=== PATIENT | female | born 1985 | race Caucasian/White ===

== ENCOUNTER → 2020-10-05 | Outpatient (CLI) | payer OTHER, SELFPAY ==
[2020-10-05 10:11] VITALS: BMI 25.3
[2020-10-12 03:06] LABS: HPV Genotype 16, Aptima Negative (Negative)
[2020-10-12 09:16] LABS: HPV APTIMA, High Risk Positive (Negative); HPV Genotype 18,45 Aptima Negative (Negative)
== END | disposition home or self-care (01) ==
LOC: LABSPEC 12:17
PROVIDERS: PCP Family Medicine; Referring Provider Nurse Practitioner Women's Health; Visit Provider Nurse Practitioner Women's Health
DX: Z12.4 Encounter for screening for malignant neoplasm of cervix (principal)
CPT/HCPCS: 87624; 88175; G0145

== ENCOUNTER 2021-11-10 07:55 | Outpatient (CLI) | payer OTHER, SELFPAY ==
[2021-11-10 08:42] LABS: Cholesterol 173 mg/dL (200); Glucose 92 mg/dL (74-106); High Density Lipoprotein 71 mg/dL; Thyroid Stim Hormone (TSH) 1.44 uIU/mL (0.358-3.74); Triglycerides 35 mg/dL; Very Low Density Lipoprotein 7 mg/dL (5-40); Vitamin D,25 Hydroxy 22.1 ng/mL
[2021-11-15 21:31] LABS: HPV APTIMA, High Risk Negative (Negative)
== END 2021-11-10 23:59 | disposition home or self-care (01) ==
PROVIDERS: PCP Family Medicine; Referring Provider Nurse Practitioner Women's Health; Visit Provider Nurse Practitioner Women's Health
DX: Z12.4 Encounter for screening for malignant neoplasm of cervix (principal); Z13.220 Encounter for screening for lipoid disorders; Z13.1 Encounter for screening for diabetes mellitus; Z13.29 Encounter for screening for other suspected endocrine disorder; Z13.21 Encounter for screening for nutritional disorder
CPT/HCPCS: 36415; 80061; 82306; 82947; 84443; 87624; 88175; G0145

== ENCOUNTER → 2022-11-14 | Outpatient (CLI) | payer OTHER, SELFPAY ==
[2022-11-14 09:15] LABS: Vitamin D,25 Hydroxy 63.2 ng/mL
[2022-11-14 09:17] LABS: Cholesterol 171 mg/dL (200); Glucose 81 mg/dL (74-106); High Density Lipoprotein 63 mg/dL; Thyroid Stim Hormone (TSH) 1.04 uIU/mL (0.358-3.74); Triglycerides 41 mg/dL; Very Low Density Lipoprotein 8 mg/dL (5-40)
[2022-11-21 16:34] LABS: HPV APTIMA, High Risk Negative (Negative)
== END | disposition home or self-care (01) ==
PROVIDERS: PCP Family Medicine; Referring Provider Nurse Practitioner Women's Health; Visit Provider Nurse Practitioner Women's Health
DX: Z13.1 Encounter for screening for diabetes mellitus (principal); Z13.220 Encounter for screening for lipoid disorders; Z13.29 Encounter for screening for other suspected endocrine disorder; Z13.21 Encounter for screening for nutritional disorder; Z12.4 Encounter for screening for malignant neoplasm of cervix
CPT/HCPCS: 36415; 80061; 82306; 82947; 84443; 87624; 88175; G0145

== ENCOUNTER → 2023-11-20 | Outpatient (CLI) | payer OTHER, SELFPAY ==
[2023-11-28 10:09] LABS: HPV APTIMA, High Risk Negative (Negative)
== END | disposition home or self-care (01) ==
PROVIDERS: PCP Family Medicine; Referring Provider Nurse Practitioner Women's Health; Visit Provider Nurse Practitioner Women's Health
DX: Z12.4 Encounter for screening for malignant neoplasm of cervix (principal)
CPT/HCPCS: 87624; 88175; G0145

== ENCOUNTER → 2023-11-26 | Outpatient (CLI) | payer OTHER, SELFPAY ==
--- NOTE | 2023-11-26 10:55 | US_ITS ---
STUDY: ULTRASOUND OF THE FEMALE PELVIS - COMPLETE REASON FOR EXAM: Female, 38 years old. AUB LMP: November 11, 2023. TECHNIQUE: Transabdominal and Transvaginal TECHNICAL QUALITY: Adequate. COMPARISON: None. FINDINGS: The uterus is anteverted and is in a midline position. The uterus measures 9.7 cm x 5.7 cm x 3.4 cm. Normal uterine cervix. The endometrium is thickened and measures 13.2 mm in thickness, and is heterogeneous (striated). There is no demonstrated endometrial mass. Findings suggestive of a 5 mm x 9 mm x 5 mm fibroid in the right side of the body of the uterus. I.U.D. - The patient does not have an I.U.D. The right ovary is visualized. The right ovary measures 3.4 cm x 3.1 cm x 1.8 cm. There is no right ovarian cyst or ovarian mass. There is no visualized right adnexal mass or complex lesion. There is normal arterial and normal venous vascularity. The left ovary is visualized. The left ovary measures 2.8 cm x 3 cm x 3.4 cm. A dominant follicle is seen measuring 1.2 cm x 0.9 cm x 1.7 cm. There is no visualized left adnexal mass or complex lesion. There is normal arterial and normal venous vascularity. There is no fluid in the cul-de-sac. The pre void volume of the bladder was 838.5 ml. US/Transvaginal Non- IMPRESSION: Endometrial thickening. 1.2 cm x 0.9 cm x 1.7 cm dominant follicle in the left ovary. Electronically Signed: Walt Mendieta MD at 12:37 EDT ,
== END | disposition home or self-care (01) ==
LOC: US 10:55
PROVIDERS: PCP Family Medicine; Referring Provider Nurse Practitioner Women's Health; Visit Provider Nurse Practitioner Women's Health
DX: N93.9 Abnormal uterine and vaginal bleeding, unspecified (principal)
CPT/HCPCS: 76830; 76856

== ENCOUNTER → 2023-12-18 | Outpatient (CLI) | payer OTHER, SELFPAY ==
[2023-12-18 08:51] LABS: Cholesterol 207 mg/dL (200); Glucose 93 mg/dL (74-106); High Density Lipoprotein 80 mg/dL; Thyroid Stim Hormone (TSH) 1.06 uIU/mL (0.358-3.74); Triglycerides 49 mg/dL; Very Low Density Lipoprotein 10 mg/dL (5-40)
[2023-12-18 09:21] LABS: Vitamin D,25 Hydroxy 86.3 ng/mL
== END | disposition home or self-care (01) ==
LOC: PAVLAB 08:09
PROVIDERS: PCP Family Medicine; Referring Provider Nurse Practitioner Women's Health; Visit Provider Nurse Practitioner Women's Health
DX: Z13.21 Encounter for screening for nutritional disorder (principal); Z13.29 Encounter for screening for other suspected endocrine disorder; Z13.220 Encounter for screening for lipoid disorders; Z13.1 Encounter for screening for diabetes mellitus
CPT/HCPCS: 36415; 80061; 82306; 82947; 84443

== ENCOUNTER → 2024-11-19 | Outpatient (CLI) | payer OTHER, SELFPAY ==
[2024-11-19 09:11] LABS: Cholesterol 205 mg/dL (<=200); Glucose 90 mg/dL (70-99); High Density Lipoprotein 84 mg/dL; Low Density Lipoprotein Calc. 112 mg/dL; Triglycerides 42 mg/dL; Very Low Density Lipoprotein 8 mg/dL (5-40); Vitamin D,25 Hydroxy 60.1 ng/mL (30-100); cholesterol:hdl ratio screen 2.43
== END | disposition home or self-care (01) ==
PROVIDERS: Referring Provider Obstetrics & Gynecology; Visit Provider Obstetrics & Gynecology
DX: Z13.1 Encounter for screening for diabetes mellitus (principal); Z13.29 Encounter for screening for other suspected endocrine disorder; Z13.220 Encounter for screening for lipoid disorders
CPT/HCPCS: 36415; 80061; 82306; 82947; 84443

== ENCOUNTER → 2025-01-28 | Outpatient (CLI) | payer OTHER, SELFPAY ==
--- NOTE | 2025-01-28 08:00 | BI_ITS ---
EXAM: SCRN MAMM (CAD)W/CLAUDE BILAT 01/28/2025 CLINICAL HISTORY: F, Age 40 y/o , SCREENING MAMMOGRAM TECHNIQUE: Bilateral screening digital breast tomosynthesis with 2D and 3D images. Computer aided detection. COMPARISON: Baseline examination, no priors. FINDINGS: TISSUE DENSITY: The breast tissue is extremely dense which lowers the sensitivity of mammography. The mammogram demonstrates that the patient has dense breasts. Supplemental screening with whole breast ultrasound or MRI may be considered for further evaluation. Bilateral Breast Mammographic Findings: No significant masses, calcifications or other abnormalities are identified. BI/SCRN MAMM (CAD)W/CLAUDE BILAT IMPRESSION: Right Breast: BIRADS 1 NEGATIVE. Left Breast: BIRADS 1 NEGATIVE. OVERALL FINAL ASSESSMENT: BIRADS 1 NEGATIVE. RECOMMENDATION: Routine annual follow-up in 1 Year A letter with findings and recommendations will be mailed to the patient. Reading Location: [id number]
--- OUTSIDE RECORDS SUMMARY | 2025-01-28 08:02 | XMS RPT_ITS | CCD ---
Author Organization [facility] Care Team Providers Care Title Checker Name Role Phone HERMES Martinez Primary Care Provider HERMES Martinez Referring Provider [phone] CELESTE Hicks NP Attending Provider Care Physician, No Primary Primary Care Provider Unavailable Dr. Regi Mott DO Attending Provider Dr. Regi Mott DO Referring Provider Care Physician, No Primary Primary Care Unava ilable Regi Mott Attending Nanda Huerta Referring Unavailable Care Physician, No Primary Primary Care Unava ilable Regi Mott Attending Regi Taveras Referring Jenny e Care Physician, No Primary Primary Care Unava ilable Regi Mott Attending Regi Taveras Referring Jenny e Medications Current Medications Medication Drug Class(es) Dates Sig (Normalized) Sig (Original) ascorbic acid 1000 mg oral capsule (4 sources) Vitamin C Start: 11-20-2023 take 1 g by mouth every six hours Ascorbic Acid (Vitamin C) 1,000 mg capsule Active 1 g PO EVERY 6 HOURS November 20, 2023 12:00am Start: 11-20-2023 take 1 g by mouth ev jasmeet six hours Ascorbic Acid (Vitamin C) Active 1 GM PO EVERY 6 HOURS November 20, 2023 12:00am B.Coagul,Brdxzgbt-Jemzvj-Tbz C (Culturelle Probiotic-Prebiotic) 1 billion cell- 1 gram-15 mg tablet,chewable (4 sources) Start: 11-20-2023 B.Coagul,Ggibfldr-Qsrkeq-Yhh C (Culturelle Probiotic-Prebiotic) 1 billion cell- 1 gram-15 mg tablet,chewable Active {tbl} PO November 20, 2023 12:00am Start: 11-20-2023 B.Coagul,Maryi rwr-Nhuxaj-Qkg C (Culturelle Probiotic- Prebiotic) 1 billion cell- 1 gram-15 mg tablet,chewable Active TABLET PO November 20, 2023 12:00am cholecalciferol 0.05 mg oral capsule (4 sources) Vitamin D Start: 11-20-2023 take 1 capsule by mouth once daily Cholecalciferol (Vitamin D3) 50 mcg (2,000 unit) capsule Active 50 ug PO DAILY November 20, 2023 12:00am Magnesium (4 sources) Start: 11-20-2023 take 1 tablet by mouth once daily Magnesium 250 mg tablet Active 250 mg PO DAILY November 20, 2023 12:00am Start: 11-20-2023 take 250 mg by mouth once adriana y Magnesium Active 250 MG PO DAILY November 20, 2023 12:00am Multivit Glk-Jakt-Qv-Herb 186 (Hair, Skin And Nails Advanced) 3.3 mg iron-25 mcg tablet (4 sources) Start: 11-20-2023 take 3.3 tablets by mouth once Multivit Nlt-Lbzl-Pa-Herb 186 (Hair, Skin And Nails Advanced) 3.3 mg iron-25 mcg tablet Active {tbl} PO November 20, 2023 12:00am Start: 11-20-2023 Multivit Min-I surendra-Fa-Herb 186 (Hair, Skin And Nails Advanced) 3.3 mg iron-25 mcg tablet Active TABLET PO November 20, 2023 12:00am Multivitamin preparation (3 sources) Start: 11-20-2023 take 1 tablet by mouth once daily Multivitamin Active 1 TABLET PO DAILY November 20, 2023 12:00am Multivitamin tablet (1 source) Start: 11-20-2023 Multivitamin t ablet Active 1 {tbl} PO DAILY November 20, 2023 12:00am Dakota-3 Fatty Acids (3 sources) Start: 11-20-2023 take 1000 mg by mouth once daily Dakota-3 Fatty Acids Active 1000 MG PO DAILY November 20, 2023 12:00am Dakota-3 Fatty Acids 1,000 mg capsule (1 source) Start: 11-20-2023 take 1 capsule by mouth once daily Dakota-3 Fatty Acids 1,000 mg capsule Active 1000 mg PO DAILY November 20, 2023 12:00am Completed/Discontinued Medications Medication Drug Class(es) Dates Sig (Normalized) Sig (Original) saccharomyces boulardii 250 mg oral capsule (4 sources) Start: 11-20-2023 End: 11-20-2023 take 1 capsule by mouth twice daily Saccharomyces Boulardii (Daily Probiotic (S. Boulardii)) 250 mg capsule Discontinued 250 mg PO TWICE A DAY November 20, 2023 12:00am November 20, 2023 9:06am Problems Problem Classification Problem Date Documented Date Episodic/Chronic Nutritional deficiencies (6 sources) Vitamin D deficiency; Translations: [Vitamin D deficiency, unspecified] 11-10-2021 Chronic Other female genital disorders (4 sources) Abnormal uterine bleeding; Translations: [Abnormal uterine and vaginal bleeding, unspecified] 11-20-2023 Chronic Other female genital disorders (3 sources) Abnormal uterine and vaginal bleeding, unspecified; Translations: [Unspecified disorders of menstruation and other abnormal bleeding from female genital tract] 11-20-2023 Chronic Other screening for suspected conditions (not mental disorders or infectious disease) (3 sources) Encounter for screening mammogram for malignant neoplasm of breast; Translations: [Encounter for screening for diabetes mellitus] Onset: 11-20-2024 Episodic Residual codes; unclassified (9 sources) Positive measurement finding; Translations: [Positive test for human papillomavirus (HPV)] 11-14-2022 Episodic Comment on above: neg pap; repeat pap 09/2021:neg pap and [id number]. 2023: Results Test Name Value Interpretation Reference Range Facility Paper Finisher Office Visit Reporton 11-21-2024 Paper Finisher Office Visit Report [facility] [address], [address] [place] [address] OFFICE VISIT Date of Service: 11/21/24 MR#: [id number] Acct: [id number] Name: OSCAR MATSON Rep #: [id number] : 1985 Provider: Dr. Regi Putnam DO Age/Sex: 39/F Location: [facility] Status: Signed Intake Vital Signs 11/20/23 09:06 11/21/24 13:26 Height 5 ft 3 in 5 ft 3 in Weight: 138 lb 6 oz BMI 24.5 BP 106/62 Intake Visit Reasons: Annual ([employer]) Manager Environmental Services Required: No Is patient in pain?: No Allergies No Known Allergies Allergy (Unverified 11/21/24 13:27) Medications ???Medication ???Instructions ???Recorded ???Confirmed ???Type B.coagulan,subtilis 1 bill. tab PO 11/20/23 11/21/24 History cell-inulin 1 gram-vit C 15 mg chew tablet (Culturelle Probiotic-Prebiotic) cholecalciferol (vitamin D3) 50 50 mcg PO DAILY 11/20/23 11/21/24 History mcg (2,000 unit) capsule magnesium 250 mg tablet 250 mg PO DAILY 11/20/23 11/21/24 History multivitamin 1 tab PO DAILY 11/20/23 11/21/24 H istory multivitamin,min-ferr ous fumarate tab PO 11/20/23 11/21/24 History 3.3 mg-folic 25 mcg-herb tablet (Hair, Skin and Nails Advanced) omega-3 fatty acids 1,000 mg 1,000 mg PO DAILY 11/20/23 5 History capsule Is last menstrual period known: Yes Last Menstrual Period: 11/12/24 Post menopausal: No Patient : No : No PFSH Medical History H/O blood clots Surgical History H/O oral surgery H/O lateral meniscus repair of left knee Family History Grandmother Lymphoma Father Skin cancer Mother irregular cervical cells Aunt Liver cancer Social History household members: spouse and children number of children: 1 current occupational status: employed current occupation: the [employer] history of recent travel: No sexually active: Yes Smoking Status: Never smoker alcohol intake: current alcohol intake frequency: a few times a month substance use type: does not use what type of physical activity do you participate in: walking and weight training frequency: daily seatbelt use: always do you feel safe at home: Yes additional social history: - Lai History 1 Elective abortions Hx Para 1 Spontaneous abortions Hx # Term Pregnancies Ectopic pregnancies Hx # Pregnancies Multiple births # of living children 1 Past Pregnancies Del. Date Name GA/Weeks Outcome Route Bth Weight Gen Labor Lgth Anesthesia Del Leonard Provider FOB 03/06/12 Alan HERNANDEZ HPI Encounter for routine gynecological examination Details: OSCAR BARCLAY is a 39 year old who presents for annual exam continues to have breakthrough bleeding especially after exercise. Last PAP: 2023 History of abnormal PAP: no Last mammogram: 2023 History of abnormal mammogram: no Colon cancer screening: n/a Other preventative health care screenings: followed by pcp Female Reproductive History Last Menstrual Period: 11/12/24 Cycle Length: 21-35 Bleeding Duration: 5 Questions: metorrhagia: No, sexually active: Yes, dyspareunia: No and PCB: No Menopausal Symptoms: No hot flashes, No night sweats, No weight change, No mood changes, No difficulty concentrating, No sleep problems and No change in libido ROS Const Constitutional: Reports as per HPI; Denies fatigue, increased appetite, poor appetite, night sweats, weight gain or weight loss Cardio Card: Denies chest pain Resp Resp: Denies cough or dyspnea GI GI: Reports as per HPI; Denies abdominal pain, bloating, constipation, nausea or vomiting : Reports as per HPI and other; Denies difficulty voiding, dysuria, hematuria, hot flashes, nipple discharge, pelvic pain, prolapse symptoms, urinary frequency, urinary incontinence, urinary urgency, vaginal discharge, vaginal dryness, vaginal odor or vaginal pruritus Skin Skin/Breast: Denies changing lesions, breast mass, breast pain, breast skin changes or nipple discharge Psych Psych: Denies anxiety, change in libido, depression or difficulty concentrating Exam Const General: cooperative, healthy appearing, comfortable, no acute distress, well developed and well groomed [facility] Head: normal to inspection and normocephalic Ears: hearing grossly normal bilaterally and external ears normal Nose: external nose normal Face and sinus: normal facial exam Neck Neck: normal visual inspection, full ROM and no lymphadenopathy Thyroid: thyroid normal Chest Chest palpation inspection: normal inspection of the chest Breast in (more content not included)... Normal [facility] Calculated very low density lipoprotein (VLDL) cholesterol measurementOrdered By: Regi Dominguez on 11-19-2024 VLDL Cholesterol 8 mg/dL 5-40 [facility] Glucoseon 11-19-2024 Glucose [Mass/Vol] 90 mg/dL Normal 70-99 [facility] Comment on above: Performed By: #### L [id number], L500.4100, L501.0100, L506.1001 #### [facility] [address] [place], [address] L506.1001on 11-19-2024 Vitamin D 25-OH 60.1 ng/mL Normal 30-100 [facility] Comment on above: Result Comment: Hilda min D Status Deficiency: <20 ng/mL (50nmol/L) Insufficiency: 20-30 ng/mL (50-75 nmol/L) Sufficiency: 30-100 ng/mL (75-250 nmol/L) Toxicity: >100 ng/mL (>250 nmol/L) Performed By: #### L [id number], L500.4100, L501.0100, L506.1001 #### [facility] [address] [place], [address] LDL calc ser/plasOrdered By: Regi Dominguez on 11-19-2024 LDL Cholesterol, Calculated 112 mg/dL [facility] Comment on above: Uaasflmcxy=750-724 m g/dL & Higher Bfsk=132 mg/dL or greater Lipid Profileon 11-19-2024 CHOL:HDL 2.43 Normal [facility] Comment on above: Performed By: #### L [id number], L500.4100, L501.0100, L506.1001 #### [facility] [address] [place], [address] Cholesterol [Mass/Vol] 205 mg/dL High <=200 [facility] Comment on above: Result Comment: Chol esterol level, Desirable <200 mg/dL Borderline high cholesterol 200-239 mg/dL High cholesterol >=240 mg/dL Recommendations of the NCEP Adult Treatment Panel for the following risk-cutoff thresholds for the [place] population. Performed By: #### L [id number], L500.4100, L501.0100, L506.1001 #### [facility] [address] [place], [address] Cholesterol in HDL [Mass/Vol] 84 mg/dL Normal [facility] Comment on above: Result Comment: Emely onal Cholesterol Education Program (NCEP) guidelines: <40 mg/dL: Low HDL-cholesterol (major risk factor for CHD) >= 60 mg/dL: High HDL-cholesterol (negative risk factor for CHD) HDL-cholesterol is affected by a number of factors, e.g. smoking, exercise, hormones, sex and age. Performed By: #### L [id number], L500.4100, L501.0100, L506.1001 #### [facility] [address] [place], [address] Cholesterol in LDL [Mass/Vol] 112 mg/dL Normal [facility] Comment on above: Result Comment: Bord pxxuax=412-095 mg/dL Higher Fper=288 mg/dL or greater Performed By: #### L 501.9520, L500.4100, L501.0100, L506.1001 #### [facility] [address] [place], [address] Cholesterol in VLDL [Mass/Vol] 8 mg/dL Normal 5-40 [facility] Comment on above: Performed By: #### L [id number], L500.4100, L501.0100, L506.1001 #### [facility] [address] [place], [address] Triglyceride [Mass/Vol] 42 mg/dL Normal [facility] Comment on above: Result Comment: The drugs N-Acetylcysteine and Metamizole may falsely depress this assay. Normal range: <150 mg/dL Borderline High: 150-199 mg/dL High: 200-499 mg/dL Very High: >500 mg/dL Performed By: #### L [id number], L500.4100, L501.0100, L506.1001 #### [facility] [address] [place], [address] Screening total cholesterol/ high density lipoprotein (HDL) cholesterol ratioOrdered By: Regi Dominguez on 11-19-2024 Cholesterol.total/Nicol sterol in HDL [Mass ratio] 2.43 {ratio} [facility] Serum glucose measurement (m ass/volume)Ordered By: Regi Dominguez on 11-19-2024 Glucose [Mass/Vol] 90 mg/dL 70-99 [facility] Serum or plasma cholesterol in HDL measurement (mass/volume)Ordered By: Regi Dominguez on 11-19-2024 Cholesterol in HDL [Mass/Vol] 84 mg/dL >40 [facility] Comment on above: National Cholesterol Education Program (NCEP) guidelines:<40 mg/dL: Low HDL-cholesterol (major risk factor for CHD)>= 60 mg/dL: High HDL-cholesterol (negative risk factor for CHD)HDL-cholesterol is affected by a number of factors, e.g. smoking, exercise, hormones, sex and age. Serum or plasma cholesterol measurement (mass/volume)Ordered By: Regi Dominguez on 11-19-2024 Cholesterol [Mass/Vol] 205 mg/dL High <201 [facility] Comment on above: Cholesterol level, D esirable <200 mg/dLBorderline high cholesterol 200-239 mg/dLHigh cholesterol >=240 mg/dLRecommendations of the NCEP Adult Treatment Panel for the following risk-cutoff thresholds for the [place] population. TSH DL <= 0.005 mIU/L QnOrde red By: Regi Dominguez on 11-19-2024 Thyroid Stimulating Hormone (TSH) 1.370 uIU/mL 0.300-4.200 [facility] Thyroid Stim Hormone (TSH)on 11-19-2024 TSH 1.370 uIU/mL Normal 0.300-4.200 [facility] Comment on above: Performed By: #### L [id number], L500.4100, L501.0100, L506.1001 #### [facility] [address] [place], [address] Triglycerides measurementOrd ered By: Regi Dominguez on 11-19-2024 Triglyceride [Mass/Vol] 42 mg/dL <199 [facility] Comment on above: The drugs N-Acetylcy steine and Metamizole may falsely depress this assay. Normal range: <150 mg/dLBorderline High: 150-199 mg/dLHigh: 200-499 mg/dLVery High: >500 mg/dL Vitamin D, 25-hydroxyOrdered By: Regi Dominguez on 11-19-2024 Vitamin D 25-Hydroxy 60.1 ng/mL 30-100 [facility] Comment on above: Vitamin D StatusDefi ciency: <20 ng/mL (50nmol/L)Insufficiency: 20-30 ng/mL (50-75 nmol/L)Sufficiency: 30-100 ng/mL (75-250 nmol/L)Toxicity: >100 ng/mL (>250 nmol/L) Basophil percentageOrdered B y: Rachell Hicks on 12-18-2023 Cholesterol [Mass/Vol] 207 mg/dL <200 [facility] Comment on above: <200 mg/dL Desirable 200-240 mg/dL Borderline >240 mg/dL High Risk Glucose [Mass/Vol] 93 mg/dL 74-106 [facility] Triglyceride [Mass/Vol] 49 mg/dL <199 [facility] Comment on above: The drugs N-Acetylcy steine and Metamizole may falsely depress this assay.Serum Triglycerides Reference Interval Normal <150 mg/dL Borderline high 150 - 199 mg/dL High 200 - 499 mg/dL Very High > or = 500 mg/dL Laboratory - Chemistry and C hemistry - challengeOrdered By: Rachell Hicks on 12-18-2023 Cholesterol in HDL [Mass/Vol] 80 mg/dL >40 [facility] Comment on above: The drugs N-Acetylcy steine and Metamizole may falsely depress this assay. Reference Range HDL <40 mg/dL Low HDL Cholesterol HDL >or= 60 mg/dL High HDL Cholesterol Cholesterol in LDL [Mass/Vol] 117 mg/dL 0-130 [facility] No Panel InformationOrdered By: Rachell Hicks on 12-18-2023 Vitamin D 25-Hydroxy 86.3 ng/mL [facility] Comment on above: Vitamin D 25(OH) Sta tus Range Deficiency <20 ng/mL (50nmol/L) Insufficiency 20 - 30 ng/mL (50 - 75 nmol/L) Sufficiency 30 - 100 ng/mL (75 - 250 nmol/L) Toxicity >100 ng/mL (>250 nmol/L) VLDL Cholesterol 10 mg/dL 5-40 [facility] Serum or plasma thyroid stim ulating hormone (TSH) measurement (units/volume)Ordered By: Rachell Hicks on 12-18-2023 TSH Qn 1.06 uIU/mL 0.358-3.74 [facility] Cervical or vaginal specimen microscopic examination by liquid based cytology (reportOrdered By: Rachell Hicks on 11-20-2023 Cytology report Cyto stain.thin prep Doc (Cvx/Vag) Comment . [facility] Comment on above: Criteria not met, HP V Genotype not performed.Performed at: - [address] [id number] Director: Jennifer Bradley MD, Phone: [phone] at: =[facility] [id number] Director: Jennifer Bradley MD, Phone: [phone] Cervical or vagninal specime n microscopic examination by cytology stain (reported asOrdered By: Rachell Hicks on 11-20-2023 Cytology report Cyto stain Doc (Cvx/Vag) Comment . [facility] Comment on above: The Pap smear is a s creening test designed to aid in thedetection of premalignant and malignant conditions of theuterine cervix. It is not a diagnostic procedure andshould not be used as the sole means of detecting cervicalcancer. Both false-positive and false-negative reports dooccur. Detection in cervical specim en of any of human papilloma virus (HPV) 16, 18, 31, 33,Ordered By: Rachell Hicks on 11-20-2023 HPV 16+18+31+33+35+39+45+51 +52+56+58+59+66+68 DNA Probe+sig amp Ql (Cvx) Negative Negative [facility] Comment on above: This nucleic acid am plification test detects fourteen high-risk HPV types (16,18,31,33,35,39,45,51,52,56,58,59,66,68)without differentiation. Laboratory - CytologyOrdered By: Rachell Hicks on 11-20-2023 Inspector [employer] Cyto stain Nom (Cvx/Vag) [ID] Comment . [facility] Comment on above: Hannah Cortez, Cyto technologist (ASCP) Pathologist Cyto stain Nom (Cvx/Vag) [ID] Comment . [facility] Comment on above: Aylin Dela Cruz MD, Pa thologist Laboratory - Miscellaneous t estsOrdered By: Rachell Hicks on 11-20-2023 Service comment (Unsp spec) [Interp] . . [facility] Thin prep Papanicolaou smear with manual screeningOrdered By: Rachellsilviano Hicks on 11-20-2023 Thin prep Papanicolaou smear with manual screening Comment . [facility] Comment on above: NEGATIVE FOR INTRAEP ITHELIAL LESION OR MALIGNANCY.REACTIVE CELLULAR CHANGES AND/OR REPAIR ARE PRESENT. This liquid based Th inPrep(R) pap test was screened withthe use of an image guided system. Basophil percentageOrdered B y: Rachell Hicks on 11-14-2022 Cholesterol [Mass/Vol] 171 mg/dL <200 [facility] Comment on above: <200 mg/dL Desirable 200-240 mg/dL Borderline >240 mg/dL High Risk Glucose [Mass/Vol] 81 mg/dL 74-106 [facility] Triglyceride [Mass/Vol] 41 mg/dL <199 [facility] Comment on above: The drugs N-Acetylcy steine and Metamizole may falsely depress this assay.Serum Triglycerides Reference Interval Normal <150 mg/dL Borderline high 150 - 199 mg/dL High 200 - 499 mg/dL Very High > or = 500 mg/dL No Panel InformationOrdered By: Rachell Hicks on 11-14-2022 Thyroid Stimulating Hormone (TSH) 1.04 uIU/mL 0.358-3.74 [facility] Vitamin D 25-Hydroxy 63.2 ng/mL [facility] Comment on above: Vitamin D 25(OH) Sta tus Range Deficiency <20 ng/mL (50nmol/L) Insufficiency 20 - 30 ng/mL (50 - 75 nmol/L) Sufficiency 30 - 100 ng/mL (75 - 250 nmol/L) Toxicity >100 ng/mL (>250 nmol/L) Serum or plasma cholesterol in HDL measurement (mass/volume)Ordered By: Rachell Hicks on 11-14-2022 Cholesterol in HDL [Mass/Vol] 63 mg/dL >40 [facility] Comment on above: The drugs N-Acetylcy steine and Metamizole may falsely depress this assay. Reference Range HDL <40 mg/dL Low HDL Cholesterol HDL >or= 60 mg/dL High HDL Cholesterol Serum or plasma cholesterol in VLDL measurement (mass/volume)Ordered By: Rachell Hicks on 11-14-2022 Cholesterol in VLDL [Mass/Vol] 8 mg/dL 5-40 [facility] Serum or plasma low density lipoprotein (LDL) cholesterol measurement (mass/volume)Ordered By: Rachell Hicks on 11-14-2022 Cholesterol in LDL [Mass/Vol] 100 mg/dL 0-130 [facility] CNOVon 02-04-2019 CNOV Office Visit (WOOB) OSCAR MATSON ([id number]) 1985 F Date Time Provider Department 02/04/19 8:30 AM MONICA WINTERS (NGA) WOOB During your visit today, we recorded the following information about you: Blood pressure Weight Height Last Period 122/66 83.6 kg 1.6 m 01/26/19 Monica Winters APRN.CNP 02/04/2019 9:02 AM Signed Oscar Barclay is a 34 year old who presents for her annual gynecologic exam without complaints. Menses: cycles every 25-30 days and 4-5 days of flow. Contraception: none HPV vaccine: N/A Last Pap: 2016 normal HPV: negative History of abnormal pap: No Last mammogram: never Sexually active: Yes Pain with intercourse: No Postcoital bleeding: No OB History T1 L1 SAB0 TAB0 Ectopic0 Multiple0 Live Births0 PAST MEDICAL HISTORY Diagnosis Date - Embolism and thrombosis of unspecified site OF THE LEFT KNEE (BLOOD CLOT) PAST SURGICAL HISTORY Procedure Laterality Date - BIOPSY SYNOVIUM KNEE JOINT Semilunar cartilage, knee - PAST SURGICAL HISTORY OF wisdom teeth extraction FAMILY HISTORY Problem Relation Age of Onset - None Mother - None Father SOCIAL HISTORY Social History Tobacco Use - Smoking status: Never Smoker - Smokeless tobacco: Never Used Substance Use Topics - Alcohol use: No - Drug use: No REVIEW OF SYSTEMS Abdomen: No abdominal pain, nausea, vomiting, diarrhea, or constipation. No bloating, early satiety, indigestion, or increased flatulence. Bladder: No dysuria, gross hematuria, urinary frequency, urinary urgency, or incontinence. Breast: No breast lumps, nipple d/c, overlying skin changes, redness or skin retraction. Allergies and current medication updated:Yes EXAM: Ht 5' 3 (1.60m) Wt 184 lb 6.4 oz (83.6kg) LMP 01/26/2019 BMI 32.67 kg/(m2). GENERAL: pleasant, female in no apparent distress HEENT: Normocephalic, atraumatic, mucus membranes moist and no lesions NECK: Supple, full range of motion, no adenopathy and thyroid normal DERMATOLOGY: Normal, without lesions, non-icteric and non-hirsute BREAST: soft, non-tender, symmetric, no dominant mass, normal nipple-areolar complex, no lymphadenopathy and no nipple discharge CHEST: Normal inspiratory effort ABDOMEN: soft, non-tender and no masses PELVIC: external genitalia normal, normal Bartholin's glands, urethra, [place]'s glands, no vulvar lesions, no cervical lesions, good vaginal support, physiologic discharge present, normal appearing perineal body and perianal region, well estrogenized BIMANUAL: uterus normal size, shape and consistency, no adnexal masses, non-tender and no cervical motion tenderness RECTOVAGINAL: deferred. NEURO: alert and oriented x3,exam grossly non-focal EXTREMITIES: normal ASSESSMENT/PLAN: 1) Health maintenance: Pap/HPV up to date. Mammogram starting age 40. Nutrition, exercise and routine health maintenance exams reviewed. Calcium/Vitamin D supplementation information provided. 2) Contraception: none. Contraceptive options reviewed and information provided. 3) STD screening: Declined STD check. 4) Follow up one year or sooner as needed Monica Winters APRN.NGA Referring Provider: SELF [200] Allergies As of Date: 02/04/2019 (No Known Allergies) Date Reviewed: 02/04/2019 Reviewed by: Monica Winters - Fully Assessed Reason for Visit: Yearly Exam [187] Primary Visit Diagnosis:Encounter for gynecological examination (general) (routine) without abnormal findings [Z01.419] Problem List As Of Date 02/04/2019 Noted Resolved DVT of leg (deep venous thrombosis) [I82.409] INVALID FOR* Disposition: Return in 1 year (on 02/05/2020) for Annual Exam. Follow-up and Disposition History Recorded Encounter Status:Closed by MONICA WINTERS on 02/04/19 Normal [facility] PROGRESSon 02-04-2019 Protein mass conc HNO ID: [id number] Author: Monica Winters Service: ? Author Type: Nurse Practitioner Type: Progress Notes Filed: 02/04/2019 9:02 AM Note Text: Oscar Barclay is a 34 year old who presents for her annual gynecologic exam without complaints. Menses: cycles every 25-30 days and 4-5 days of flow. Contraception: none HPV vaccine: N/A Last Pap: 2015 normal HPV: negative History of abnormal pap: No Last mammogram: never Sexually active: Yes Pain with intercourse: No Postcoital bleeding: No OB History T1 L1 SAB0 TAB0 Ectopic0 Multiple0 Live Births0 PAST MEDICAL HISTORY Diagnosis Date - Embolism and thrombosis of unspecified site OF THE LEFT KNEE (BLOOD CLOT) PAST SURGICAL HISTORY Procedure Laterality Date - BIOPSY SYNOVIUM KNEE JOINT Semilunar cartilage, knee - PAST SURGICAL HISTORY OF wisdom teeth extraction FAMILY HISTORY Problem Relation Age of Onset - None Mother - None Father SOCIAL HISTORY Social History Tobacco Use - Smoking status: Never Smoker - Smokeless tobacco: Never Used Substance Use Topics - Alcohol use: No - Drug use: No REVIEW OF SYSTEMS Abdomen: No abdominal pain, nausea, vomiting, diarrhea, or constipation. No bloating, early satiety, indigestion, or increased flatulence. Bladder: No dysuria, gross hematuria, urinary frequency, urinary urgency, or incontinence. Breast: No breast lumps, nipple d/c, overlying skin changes, redness or skin retraction. Allergies and current medication updated:Yes EXAM: Ht 5' 3 (1.60m) Wt 184 lb 6.4 oz (83.6kg) LMP 01/26/2019 BMI 32.67 kg/(m2). GENERAL: pleasant, female in no apparent distress HEENT: Normocephalic, atraumatic, mucus membranes moist and no lesions NECK: Supple, full range of motion, no adenopathy and thyroid normal DERMATOLOGY: Normal, without lesions, non-icteric and non-hirsute BREAST: soft, non-tender, symmetric, no dominant mass, normal nipple-areolar complex, no lymphadenopathy and no nipple discharge CHEST: Normal inspiratory effort ABDOMEN: soft, non-tender and no masses PELVIC: external genitalia normal, normal Bartholin's glands, urethra, [place]'s glands, no vulvar lesions, no cervical lesions, good vaginal support, physiologic discharge present, normal appearing perineal body and perianal region, well estrogenized BIMANUAL: uterus normal size, shape and consistency, no adnexal masses, non-tender and no cervical motion tenderness RECTOVAGINAL: deferred. NEURO: alert and oriented x3,exam grossly non-focal EXTREMITIES: normal ASSESSMENT/PLAN: 1) Health maintenance: Pap/HPV up to date. Mammogram starting age 40. Nutrition, exercise and routine health maintenance exams reviewed. Calcium/Vitamin D supplementation information provided. 2) Contraception: none. Contraceptive options reviewed and information provided. 3) STD screening: Declined STD check. 4) Follow up one year or sooner as needed Monica Winters APRN.CARBONATION TESTER Normal [facility] Vital Signs Date Time Vital Sign Value Performing Clinician Faci lity 11-20-2023 09:06-0400 Body height 160.02 cm PA-C [employer] Work Phone: [facility] 11-20-2023 08:51-0400 Body mass index (BMI) [Ratio] 24.1 kg/m2 PA-C [employer] Work Phone: [facility] 11-20-2023 08:51-0400 Body weight 61.91 kg PA-C [employer] Work Phone: [facility] 11-20-2023 08:51-0400 Diastolic blood pressure 72 mm[Hg] PA-C Nanda [employer] PA Work Phone: [facility] 11-20-2023 08:51-0400 Systolic blood pressure 114 mm[Hg] PA-C [employer] PA Work Phone: [facility] 11-14-2022 08:28-0400 Body height 160.02 cm PA-C [employer] PA Work Phone: [facility] 11-14-2022 08:18-0400 Body mass index (BMI) [Ratio] 25.6 kg/m2 PA-C Nanda [employer] PA Work Phone: [facility] 11-14-2022 08:18-0400 Body weight 65.54 kg PA-C [employer] PA Work Phone: [facility] 11-14-2022 08:18-0400 Diastolic blood pressure 64 mm[Hg] PA-C [employer] PA Work Phone: [facility] 11-14-2022 08:18-0400 Systolic blood pressure 100 mm[Hg] PA-C [employer] PA Work Phone: [facility] Encounters Encounter Date Encounter Type Care Provider Facility Start: 01-28-2025 ambulatory No Primary Car e Physician Facility:[facility] Start: 11-21-2024 End: 11-21-2024 ambulatory No Primary Care Physician Facility:[facility] Start: 11-19-2024 End: 11-19-2024 ambulatory No Primary Care Physician [facility] Work Phone: Start: 11-19-2024 End: 11-19-[address] Regi Mott DO -Laboratory Work Phone: Start: 11-19-2024 End: 11-19-2024 ambulatory No Primary Care Physician Facility:[facility] Start: 12-18-2023 End: 12-18-2023 ambulatory PA-C Nanda [place] PA Work Phone: [facility] Work Phone: Start: 12-18-2023 End: 12-18-2023 Patient encounter procedure PA-C Nanda [place] PA Work Phone: [facility]-Laboratory, [facility] Start: 11-26-2023 End: 11-26-2023 ambulatory PA-C Nanda [place] PA Work Phone: [facility] Work Phone: Start: 11-26-2023 End: 11-26-2023 Patient encounter procedure PA-C Nanda [place] PA Work Phone: [facility]-Ultrasound, [facility] Work Phone: Start: 11-20-2023 End: 11-20-2023 ambulatory PA-C Nanda [place] PA Work Phone: [facility] Work Phone: Start: 11-20-2023 End: 11-20-2023 Patient encounter procedure PA-C Nanda [place] PA Work Phone: [facility]-Ultrasound, [facility] Work Phone: Start: 11-20-2023 End: 11-20-2023 Patient encounter procedure PA-C Nanda Handley PA Work Phone: [facility] Work Phone: Start: 11-14-2022 End: 11-14-2022 ambulatory PA-C Nanda [place] PA Work Phone: [facility] Work Phone: Start: 11-14-2022 End: 11-14-2022 Patient encounter procedure PA-C Nanda [place] PA Work Phone: [facility] Procedures Date Procedure Procedure Detail Performing Clinician Start: 11-26-2023 Pelvic echography PA-C Nanda [place] PA Work Phone: Start: 11-26-2023 Transvaginal echography HERMES FRAUSTO Work Phone: Plan of Treatment Date Care Activity Detail Author Start: 11-20-2023 Liquid based cervica l cytology screening [facility] Start: 11-14-2022 Liquid based cervica l cytology screening [facility] Path report.final Dx Spec [facility] Path report.final Dx Spec [facility] Payers Date Payer Category Payer Self-pay [id number] 2024 Unknown [id number] Unknown [id number] Unknown [id number] Unknown [id number] Social History Date Type Detail Facility Start: 11-14-2022 End: 11-20-2023 Tobacco smoking status NHIS Unknown if ever smoked [facility] Start: 1985 Sex Assigned At Female [facility] Start: 11-20-2023 Tobacco smoking stat us ORIS Never smoked tobacco (finding) [facility] Start: 11-20-2024 Sex Female (finding) [facility] Clinical Note 11-20-2023 Note Date & Type Note Facility 11-20-2023 Note [facility] Pap Smear Specimen Adequacy November 20, 2023 2:44pm Comment . Satisfactory for evaluation. Endocervical and/or squamous metaplasticcells (endocervical component) are present. Comment on above: Satisfactory for abdulaziz luation. Endocervical and/or squamous metaplasticcells (endocervical component) are present. Clinical Note 11-20-2023 Note Date & Type Note Facility 11-20-2023 Note [facility] Pap Smear Specimen Adequacy November 20, 2023 2:44pm Comment . Satisfactory for evaluation. Endocervical and/or squamous metaplasticcells (endocervical component) are present. Comment on above: Satisfactory for abdulaziz luation. Endocervical and/or squamous metaplasticcells (endocervical component) are present. Evaluation note Note Date & Type Note Facility Evaluation note Diagnosis Onset Date HPV test positive acute Vitamin D deficiency acute Encounter for routine gyneco logical examination noneactive [facility] Work Phone: Evaluation note Note Date & Type Note Facility Evaluation note Diagnosis Onset Date Abnormal uterine bleeding (AUB) acute HPV test positive acute Encounter for routine gyneco logical examination noneactive [facility] Work Phone: Evaluation note Note Date & Type Note Facility Evaluation note No assessment information availa ble [facility] Work Phone: Reason for referral (narrative) Note Date & Type Note Facility Reason for referral (narrative) No reason for referral information available [facility] Work Phone: Summary Purpose Family History No Family History Records Found Relationship Condition Age at Onset Recorded Date/T jelani grandmother Lymphoma Unknown father Malignant neoplasm of skin Unknown mother Unknown aunt Malignant neoplasm of liver Unknown Advance Directives No Advanced Directives Records FoundNo Advanced Directives Records Found Chief Complaint and Reason for Visit Chief Complaint Annual ([employer]) Reason for Visit HPV test positive Vitamin D deficiency Encounter for routine gynecological examination Chief Complaint Annual ([employer]) AUB AUB Reason for Visit Abnormal uterine ble eding (AUB) HPV test positive Encounter for routine gynecological examination Chief Complaint Admit Date E ORDERS November 19, 2024 7:58 am Additional Source Comments INFORMATION SOURCE (unrecogn ized section and content) DATE CREATED AUTHOR 02/05/2019 [facility] DATE CREATED AUTHOR AUTHOR'S ORGANIZ ATION 2025 [facility] Care Teams (unrecognized sec tion and content) Team Status: Active Member Role Status Dates Nanda FRAUSTO PA-C Primary Care Provider Active Team Status: Inactive Member Role Status Dates Nanda FRAUSTO PA-C Primary Care Provider, Referri ng Provider Active Rachell Hicks SENIOR PORTFOLIO ANALYST, SENIOR PORTFOLIO ANALYST-C Attending Provider Active Team Status: Inactive Member Role Status Dates Nanda FRAUSTO PA-C Primary Care Provider Active Rachell Columbus SENIOR PORTFOLIO ANALYST, SENIOR PORTFOLIO ANALYST-C Attending Provider, Referring Provider Active Team Status: Active Member Role Status Dates Nanda Ender FRAUSTO, PA-C Primary Care Provider Active Rachell Hicks NP, SENIOR PORTFOLIO ANALYST-C Attending Provider, Referring Provider Active Team Status: Active Member Role Status Dates No Primary Care Physician Primary Care Provider Active Team Status: Inactive Member Role Status Dates No Primary Care Physician Primary Care Provider Active Start: November 19, 2024 End: November 19, 2024 Dr. Regi Mott DO Attending Provider Activ e Start: November 19, 2024 End: November 19, 2024 Dr. Regi Mott , DO Referring Provider Activ e Start: November 19, 2024 End: November 19, 2024 Goals (unrecognized section and content) Goals may be documented in a n alternate sectionGoals may be documented in an alternate sectionGoals may be documented in an alternate sectionGoals may be documented in an alternate sectionGoals may be documented in an alternate section FOR RECORDS PERTAINING TO PATIENTS WHO ARE OR HAVE BEEN ENROLLED IN A CHEMICAL DEPENDENCY/SUBSTANCEABUSE PROGRAM, SOME INFORMATION MAY BE OMITTED. This clinical summary was aggregated from multiple sources. Caution should be exercised in using it in the provision of clinical care. This summary normalizes information from multiple sources, and as a consequence, information in this document may materially change the coding, format and clinical context of patient data. In addition, data may be omitted in some cases. CLINICAL DECISIONS SHOULD BE BASED ON THE PRIMARY CLINICAL RECORDS. [facility] [employer] by [employer] [facility]. provides no warranty or guarantee of the accuracy or completeness of information in this document.
== END | disposition home or self-care (01) ==
LOC: OPBI 07:44
PROVIDERS: Referring Provider Obstetrics & Gynecology; Visit Provider Obstetrics & Gynecology
DX: Z12.31 Encounter for screening mammogram for malignant neoplasm of breast (principal)
CPT/HCPCS: 77063; 77067